=== PATIENT | female | born 1945 | race Hispanic/Latino ===

== ENCOUNTER 2024-10-11 15:37 | Emergency (ER) | payer MEDICARE, OTHER ==
[~2024-10-11] VITALS: Ht 170.2 cm; Wt 90.7 kg
[2024-10-11 16:03] VITALS: BP 145/85; PULSE 85; RESP 16; TEMP 98.2; O2SAT 97
--- NOTE | 2024-10-11 16:16 | ERN ---
General Chief Complaint: Other Problems Stated Complaint: REFERRED BY DENTIST DUE TO ABNORMAL IMAGING Time Seen by MD: 15:42 History of Present Illness Initial Comments 79 year old female who presents for medical screen. 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 She attempted to go to her primary doctor but was unable to make an appointment today, so she came to the ER for clearance. She is asymptomatic. Allergies: Coded Allergies: prednisone (Unverified Allergy, Unknown, 10/11/24) Past Medical History Past Medical History: Anxiety, Depression, High Cholesterol Past Surgical History: Other ROS Dictation CONSTITUTIONAL: No chills, no fever, no weakness, no diaphoresis, no malaise. HEAD/FACE: No signs of trauma. EENT: No eye pain, no blurred vision, no tearing, no double vision, no ear pain, no ear discharge, no nose pain, no nasal congestion, no throat pain, no throat swelling, no mouth pain. RESPIRATORY: No cough, no orthopnea, no SOB, no stridor, no wheezing. CARDIOVASCULAR: No chest pain, no edema, no palpitations, no syncope. GASTROINTESTINAL/ABDOMINAL: No abdominal pain, no constipation, no diarrhea, no nausea, no vomiting. GENITOURINARY: No abnormal discharge, no dysuria, no frequent urination, no he maturia. No complaints of pain in the genitals. MUSCULOSKELETAL: No back pain, no gout, no joint pain, no joint swelling, no m uscle pain, no muscle stiffness, no neck pain. INTEGUMENTARY: No change in color, no change in hair/nails, no dryness, no lesi on, no lumps, no rash. NEUROLOGICAL/PSYCH: No anxiety, not depressed, no emotional problem, no headache, no numbness, no pre-existing deficit, no history of seizures, no tremors, no weakness. HEMATOLOGIC/LYMPHATIC: Not anemic, no history of blood clots, no apparent bleeding, no bruising, glands not swollen. All Systems Negative, Except as Noted. Physical Exam Physical Exam Dictation VITAL SIGNS: Reviewed. GENERAL APPEARANCE: Alert, oriented x3, no acute distress, obese. HEAD AND FACE: Non-traumatic. EYES: PERRL, pink conjunctivas, eyelid no trauma, anterior chamber clear. EARS: Pinnas intact and no signs of trauma or erythema. Ear canals clear and no discharge. TMs no erythema. NOSE: No discharge, no bleeding. OROPHARYNX: Mouth normal, teeth no caries, tongue pink. Pharynx clear, no erythema. Tonsils no exudates, no abscesses noted. Mucous membrane moist. NECK: Supple, non-tender, no thyromegaly, no masses, no JVD, no bruits. BREAST: Deferred. CHEST: No tenderness, no crepitus, no paradoxical movement, no retractions. LUNGS: Clear, well-ventilated, symmetric, no rales, no wheezing, no rhonchi, no stridor, good breath sounds bilaterally. HEART: Regular rate, regular rhythm, no murmur, no gallops. VASCULAR: No peripheral edema. ABDOMEN: Soft, positive bowel sounds, nondistended, no guarding, nontender, no rebound, no masses no hepatomegaly, no splenomegaly, no Bustamante's sign, no hernias. RECTAL: Deferred. GENITAL: Deferred. NEUROLOGICAL: Normal speech, gross motor function intact, gross sensory function intact. MUSCULOSKELETAL: Neck nontender, full range of motion, back nontender, full range of motion. EXTREMITIES: Nontender, full range of motion. SKIN: Color pink, dry, no turgor, no rash, no lacerations, no abrasions, no contusions. LYMPHATICS: Deferred. MDM Patient comes in with concerns. She went to the dentist, he told her that she had some atherosclerosis in her carotid arteries and that she is high risk for stroke. Her comorbidities include hypertension, advanced age She is completely asymptomatic Patient has a no current symptoms. She is in no signs of stroke. She has a no dizziness syncope or any other signs symptoms. She has a versus infectious includes hypertension advanced age, I think she would benefit from some carotid Doppler studies, but this can be done as an outpatient. We will DC. ED Course Vital Signs Date Time Temp Pulse Resp B/P (MAP) Pulse Ox O2 Delivery O2 Flow Rate FiO2 10/11/24 16:03 98.2 85 16 145/85 97 Room Air* 0 21 10/11/24 15:40 98.2 89 16 148/84 96 Room Air 0 DX & DISP Disposition: Discharge Departure Impression: Primary Impression: Encounter for medical screening examination Condition: Stable Additional Instructions: As we discussed, I recommend evaluation of your carotid arteries as an outpatient. Discuss with your primary doctor whether you need a carotid ultrasound or carotid duplex study performed. Please immediately return to the emergency department if you have any symptoms of stroke, syncope, dizziness, or any other major abnormalities. Referrals: SELF,REFERRAL (PCP) ROBERTA BAXTER DO Oct 11, 2024 16:16
== END 2024-10-11 16:24 | disposition home or self-care (01) ==
LOC: EDH 15:37
DX: Z04.89 Encounter for examination and observation for other specified reasons (principal); E78.00 Pure hypercholesterolemia, unspecified; F32.A Depression, unspecified; F41.9 Anxiety disorder, unspecified; Z88.8 Allergy status to other drugs, medicaments and biological substances
CPT/HCPCS: 99282